=== PATIENT | female | born 1950 | race Caucasian/White ===

== ENCOUNTER → 2016-09-10 | Day surgery (SDC) | payer BC, MEDICARE ==
[~2016-09-10] MED LIST: Lactated Ringers 1,000 ML IV SCH; Propofol 200 MG/20 ML SDV IV ONE
[2016-09-10 10:20] VITALS: BP 137/68
--- NOTE | 2016-09-10 12:06 | OR ---
DATE OF OPERATION: 09/10/2016 PREOPERATIVE DIAGNOSIS: SCREENING COLONOSCOPY. POSTOPERATIVE DIAGNOSIS: SCREENING COLONOSCOPY. SURGEON: Darren Cooney MD PROCEDURE: FULL-LENGTH COLONOSCOPY. 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 COMPLICATIONS: None. SPECIMEN: None. FINDINGS: 1. Full-length colonoscopy. 2. Mild sigmoid diverticulosis. RECOMMENDATIONS: Routine colonoscopy every 10 years. INDICATIONS: The patient was in for a routine physical. Cierra Flores sent her for a screening colonoscopy. DESCRIPTION OF PROCEDURE: The patient was prepped and draped, placed in the left lateral decubitus position. A lubricated Olympus colonoscope was inserted and easily advanced to the cecum. The patient is a bit tortuous, but scope passed easily and safely. We directly visualized the ileocecal valve and appendiceal orifice. Bowel prep was excellent. Upon withdrawal of the scope throughout the entire length of the colon, I found no signs of any polyps, mass, ulceration, or bleeding sites. No vascular abnormalities or signs of colitis. Mild scattered diverticula in the sigmoid colon without any inflammatory change. The rectal vault was unremarkable. Retroflexion of scope in the rectum showed no anal lesions. Air was then suctioned. Scope was removed without complication. CAMMIE/EVA /[id number]
== END ==
LOC: CC.SDS 08:28
PROVIDERS: ATTEND Family Medicine
DX: Z12.11 Encounter for screening for malignant neoplasm of colon (principal); K57.30 Diverticulosis of large intestine without perforation or abscess without bleeding; E78.5 Hyperlipidemia, unspecified; Z91.030 Bee allergy status; Z79.899 Other long term (current) drug therapy; Z90.49 Acquired absence of other specified parts of digestive tract; Z98.890 Other specified postprocedural states; Z87.891 Personal history of nicotine dependence; Z72.0 Tobacco use
CPT/HCPCS: G0121; J2704; J7120

== ENCOUNTER 2019-04-07 10:18 | Inpatient (IN) | payer BC, MEDICARE ==
[2019-04-07] MEDS ORDERED: Morphine 2 MG/ML Syringe IVPUSH ONE (10:49)
[2019-04-07] MEDS ORDERED: Ondansetron 4 MG/2 ML SDV IVPUSH ONE (10:52)
[2019-04-07] MEDS ORDERED: Sodium Chloride 0.9% 1,000 ML IV SCH (11:00)
[2019-04-07] MEDS ORDERED: Iopamidol 612 MG/ML 100 ML Bottle IVPUSH ONE (12:04)
--- NOTE | 2019-04-07 13:41 | EDM.PDOC ---
ED HPI GENERAL MEDICAL PROBLEM - General Chief Complaint: Gastrointestinal Problem Stated Complaint: abd pain, n/v Time Seen by Provider: 04/07/19 10:45 Source of Information: Reports: Patient, EMS, Family History Limitations: Reports: No Limitations - History of Present Illness INITIAL COMMENTS - FREE TEXT/NARRATIVE: Patient to the emergency department complaint of general to mid abdominal pain for the past few days. The patient has had some nausea with occasional vomiting. She did advise that her last bowel movement was brown-colored this morning. She denies any fever chills she denies any unusual neck, back pain or stiffness she denies any UTI type symptoms Onset: Gradual Duration: Day(s): (couple of days) Location: Reports: Abdomen Quality: Reports: Ache Severity: Moderate Improves with: Reports: None Worsens with: Reports: None Associated Symptoms: Reports: Nausea/Vomiting. 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) Abdominal Pain Score (Numeric/FACES): 10 - Related Data Allergies Allergy/AdvReac Type Severity Reaction Status Date / Time bee venom protein (honey bee) Allergy Other Verified 04/07/19 10:19 Home Meds: Home Meds Cholecalciferol (Vitamin D3) [Vitamin D3] 2,000 units PO DAILY 03/13/14 [History ] Cimetidine [Tagamet] 200 mg PO BID PRN 03/13/14 [History] Fish Oil/[place]-3 Fatty Acids [Fish Oil] 1 each PO DAILY 03/13/14 [History] Ibuprofen [Advil] 200 mg PO ASDIRECTED PRN 03/13/14 [History] Red Yeast Rice 600 mg PO BID 03/13/14 [History] Ubidecarenone [Co Q-10] 100 mg PO DAILY 03/13/14 [History] Calcium Carbonate [Calcium] 600 mg PO DAILY 09/09/16 [History] EPINEPHrine [Epipen] 0.3 mg IM DAILY 09/09/16 [History] Vitamin B Complex 1 each PO DAILY 09/09/16 [History] Denosumab [Prolia] 60 mg PO Q6M 07/14/18 [History] Loratadine [Claritin] 10 mg PO DAILY 07/14/18 [History] Lifitegrast [Xiidra] 1 drop EYEBOTH BID 03/05/19 [History] Past Medical History Gastrointestinal History: Reports: Diverticulosis Social & Family History - Family History Family Medical History: Noncontributory - Tobacco Use Smoking Status *Q: Never Smoker - Recreational Drug Use Recreational Drug Use: No ED ROS GENERAL - Review of Systems Review Of Systems: See Below Constitutional: Reports: No Symptoms. Denies: Fever, Chills HEENT: Reports: No Symptoms Respiratory: Reports: No Symptoms. Denies: Shortness of Breath Cardiovascular: Reports: No Symptoms. Denies: Chest Pain Endocrine: Reports: No Symptoms GI/Abdominal: Reports: Abdominal Pain, Nausea, Vomiting. Denies: Black Stool, Bloody Stool, Constipation, Diarrhea, Distension, Melena : Reports: No Symptoms Musculoskeletal: Reports: No Symptoms. Denies: Neck Pain, Back Pain Skin: Reports: No Symptoms. Denies: Bruising, Rash Neurological: Reports: No Symptoms Psychiatric: Reports: No Symptoms ED EXAM, GI/ABD - Physical Exam Exam: See Below Exam Limited By: No Limitations General Appearance: Alert, WD/WN, Mild Distress, Thin Ears: Normal External Exam Nose: Normal Inspection Throat/Mouth: Normal Inspection, Normal Voice, No Airway Compromise Head: Atraumatic, Normocephalic Neck: Normal Inspection, Supple, Non-Tender, Full Range of Motion Respiratory/Chest: No Respiratory Distress, Lungs Clear, Normal Breath Sounds, Chest Non-Tender Cardiovascular: Normal Peripheral Pulses, Regular Rate, Rhythm, No Murmur GI/Abdominal Exam: Soft, Tender (Generalized). No: Non-Tender, Distended, Rigid , Rebound Back Exam: Normal Inspection, Full Range of Motion Extremities: Normal Inspection, Normal Range of Motion, Non-Tender, Normal Capillary Refill Neurological: Alert, Oriented, Normal Cognition, Normal Gait, No Motor/Sensory Deficits Psychiatric: Normal Affect, Normal Mood Skin Exam: Warm, Dry, Intact, Normal Color Course - Vital Signs Text/Narrative:: The patient has been evaluated in the emergency department, CBC and general chemistries are essentially normal CRP and lactic acid are normal. Flat and upright the abdomen shows some air-fluid levels with a large small bowel ileus. The patient has normal saline IV fluids going she has been medicated for pain and nausea. Currently waiting on CT to complete a CT of the abdomen pelvis. 1415 I was called by the radiology group at [place] and advised that the patient does not have a small bowel obstruction at this point. There are air- fluid levels and it appears as if the symptoms or films are consistent with enteritis. See the radiologist dictation for complete details. Patient advises that she is still having some abdominal cramping and nausea. The patient has been given IV fluids as well as IV medications to treat her symptoms with mild results at best. The patient will be observed in observation overnight for IV fluids for hydration and prevent dehydration and control of the nausea vomiting as well as abdominal cramping. Last Recorded V/S: Last Vital Signs Temp 36.1 C 04/07/19 10:20 Pulse 74 04/07/19 10:20 Resp 18 04/07/19 10:20 BP 154/77 H 04/07/19 10:36 Pulse Ox 100 04/07/19 10:20 - Orders/Labs/Meds Orders: Active Orders 24 hr Category Date Time Status Abdomen 2V AP Flat Upright [CR] Stat Exams 04/07/19 10:48 Taken Abdomen Pelvis w Cont [CT] Stat Exams 04/07/19 11:57 Taken Sodium Chloride 0.9% [Normal Saline] 1,000 ml Med 04/07/19 11:00 Active IV ASDIRECTED Medication Orders Sodium Chloride (Normal Saline) 1,000 mls @ 150 mls/hr IV ASDIRECTED JEFF Last Admin: 04/07/19 11:48 Dose: 150 mls/hr Labs: Laboratory Tests 04/07/19 04/07/19 04/07/19 Range/Units 10:55 10:55 10:55 WBC 8.4 (5.0-10.0) 10^3/uL RBC 4.02 (4.00-5.50) 10^6/uL Hgb 12.4 (12.0-16.0) g/dL Hct 36.1 L (37.0-47.0) % MCV 89.8 (82.0-94.0) fL MCH 30.8 (27.0-32.0) pg MCHC 34.3 (33.0-38.0) g/dL RDW Coeff of [place] 12.8 (11.0-15.0) % Plt Count 311 (150-400) 10^3/uL Neut % (Auto) 80.7 (35-85) % Lymph % (Auto) 13.8 (10-55) % [place] % (Auto) 4.9 (0-16) % Eos % (Auto) 0.4 (0-5) % Baso % (Auto) 0.2 (0-3) % Neut # (Auto) 6.75 (1.80-7.00) 10^3/uL Lymph # (Auto) 1.15 (1.00-4.80) 10^3/uL [place] # (Auto) 0.41 (0.00-0.80) 10^3/uL Eos # (Auto) 0.03 (0.00-0.45) 10^3/uL Baso # (Auto) 0.02 10^3/uL Sodium 137 (136-145) mEq/L Potassium 3.5 (3.5-5.0) mEq/L Chloride 101 (98-106) mEq/L Carbon Dioxide 25 (21-32) mmol/L BUN 21 H (7-18) mg/dL Creatinine 1.0 (0.6-1.0) mg/dL Est Cr Clr Drug Dosing 40.87 mL/min Estimated GFR (MDRD) 55 L (>=60) mL/min Glucose 107 H (75-99) mg/dL Lactic Acid 1.2 (0.4-2.0) mmol/L Calcium 9.9 (8.4-10.1) mg/dL Total Bilirubin 0.4 (0.0-1.0) mg/dL AST 23 (15-37) U/L ALT 25 (12-78) U/L Alkaline Phosphatase 76 (46-116) U/L C-Reactive Protein 0.5 (0.2-0.8) mg/dL Total Protein 7.4 (6.4-8.2) g/dL Albumin 3.8 (3.4-5.0) g/dL Urine Color (YELLOW) Urine Appearance (CLEAR) Urine pH (4.5-8.0) Ur Specific [place] (1.003-1.020) Urine Protein (NEGATIVE) mg/dL Urine Glucose (UA) (NEGATIVE) mg/dL Urine Ketones (NEGATIVE) mg/dL Urine Occult Blood (NEGATIVE) Urine Nitrite (NEGATIVE) Urine Bilirubin (NEGATIVE) Urine Urobilinogen (0.2-1.0) EU/dL Ur Leukocyte Esterase (NEGATIVE) 04/07/19 Range/Units 14:00 WBC (5.0-10.0) 10^3/uL RBC (4.00-5.50) 10^6/uL Hgb (12.0-16.0) g/dL Hct (37.0-47.0) % MCV (82.0-94.0) fL MCH (27.0-32.0) pg MCHC (33.0-38.0) g/dL RDW Coeff of [place] (11.0-15.0) % Plt Count (150-400) 10^3/uL Neut % (Auto) (35-85) % Lymph % (Auto) (10-55) % [place] % (Auto) (0-16) % Eos % (Auto) (0-5) % Baso % (Auto) (0-3) % Neut # (Auto) (1.80-7.00) 10^3/uL Lymph # (Auto) (1.00-4.80) 10^3/uL [place] # (Auto) (0.00-0.80) 10^3/uL Eos # (Auto) (0.00-0.45) 10^3/uL Baso # (Auto) 10^3/uL Sodium (136-145) mEq/L Potassium (3.5-5.0) mEq/L Chloride (98-106) mEq/L Carbon Dioxide (21-32) mmol/L BUN (7-18) mg/dL Creatinine (0.6-1.0) mg/dL Est Cr Clr Drug Dosing mL/min Estimated GFR (MDRD) (>=60) mL/min Glucose (75-99) mg/dL Lactic Acid (0.4-2.0) mmol/L Calcium (8.4-10.1) mg/dL Total Bilirubin (0.0-1.0) mg/dL AST (15-37) U/L ALT (12-78) U/L Alkaline Phosphatase (46-116) U/L C-Reactive Protein (0.2-0.8) mg/dL Total Protein (6.4-8.2) g/dL Albumin (3.4-5.0) g/dL Urine Color Yellow (YELLOW) Urine Appearance Cloudy (CLEAR) Urine pH 7.0 (4.5-8.0) Ur Specific [place] 1.015 (1.003-1.020) Urine Protein Negative (NEGATIVE) mg/dL Urine Glucose (UA) Negative (NEGATIVE) mg/dL Urine Ketones Negative (NEGATIVE) mg/dL Urine Occult Blood Negative (NEGATIVE) Urine Nitrite Negative (NEGATIVE) Urine Bilirubin Negative (NEGATIVE) Urine Urobilinogen 0.2 (0.2-1.0) EU/dL Ur Leukocyte Esterase Negative (NEGATIVE) Meds: Medications Generic Name Dose Route Start Last Admin Trade Name Freq PRN Reason Stop Dose Admin Sodium Chloride 1,000 mls @ 150 mls/hr 04/07/19 11:00 04/07/19 11:48 Normal Saline IV 150 mls/hr ASDIRECTED JEFF Administration Discontinued Medications Generic Name Dose Route Start Last Admin Trade Name Freq PRN Reason Stop Dose Admin Iopamidol 100 ml 04/07/19 12:04 04/07/19 12:25 Isovue-300 (61%) IVPUSH 04/07/19 12:05 100 ml ONETIME ONE Administration Morphine Sulfate 4 mg 04/07/19 10:49 04/07/19 11:47 Morphine IVPUSH 04/07/19 10:50 4 mg ONETIME ONE Administration Ondansetron HCl 4 mg 04/07/19 10:52 04/07/19 11:48 Zofran IVPUSH 04/07/19 10:53 4 mg ONETIME ONE Administration Departure - Departure Time of Disposition: 14:20 Disposition: Refer to Observation Condition: Good Clinical Impression: Gastroenteritis, Dehydration, Abdominal pain, Ileus - Discharge Information *PRESCRIPTION DRUG MONITORING PROGRAM REVIEWED*: Not Applicable *COPY OF PRESCRIPTION DRUG MONITORING REPORT IN PATIENT CHEN: Not Applicable Referrals: Zeinab Flores PA [Primary Care Provider] - Forms: ED Department Discharge Sepsis Event Note - Evaluation Sepsis Screening Result: No Definite Risk - Focused Exam Vital Signs: Vital Signs Temp Pulse Resp BP Pulse Ox 04/07/19 10:36 154/77 H 04/07/19 10:20 36.1 C 74 18 163/78 H 100 Date Exam was Performed: 04/07/19 Time Exam was Performed: 14:16 - Problem List & Annotations (1) Abdominal pain SNOMED Code(s): 32075603 Code(s): R10.9 - UNSPECIFIED ABDOMINAL PAIN Status: Acute Priority: Medium Current Visit: Yes Qualifiers: Abdominal location: generalized Qualified Code(s): R10.84 - Generalized abdominal pain (2) Dehydration SNOMED Code(s): 93217525 Code(s): E86.0 - DEHYDRATION Status: Acute Priority: Medium Current Visit: Yes (3) Gastroenteritis SNOMED Code(s): 68422182 Code(s): K52.9 - NONINFECTIVE GASTROENTERITIS AND COLITIS, UNSPECIFIED Status: Acute Priority: Medium Current Visit: Yes (4) Ileus SNOMED Code(s): 742008388 Code(s): K56.7 - ILEUS, UNSPECIFIED Status: Acute Priority: Medium Current Visit: Yes - Problem List Review Problem List Initiated/Reviewed/Updated: Yes - My Orders Last 24 Hours: My Active Orders 04/07/19 10:48 Abdomen 2V AP Flat Upright [CR] Stat 04/07/19 11:00 Sodium Chloride 0.9% [Normal Saline] 1,000 ml IV ASDIRECTED 04/07/19 11:57 Abdomen Pelvis w Cont [CT] Stat - Assessment/Plan Admission H&P: Please use this note as an admission H&P Last 24 Hours: My Active Orders 04/07/19 10:48 Abdomen 2V AP Flat Upright [CR] Stat 04/07/19 11:00 Sodium Chloride 0.9% [Normal Saline] 1,000 ml IV ASDIRECTED 04/07/19 11:57 Abdomen Pelvis w Cont [CT] Stat Plan: The patient will be evaluated in observation overnight. Again she will be given IV fluids to keep her hydrated as well as she will be given antiemetics to control her nausea and vomiting. The patient's labs will be repeated in the morning and I suspect discharged home tomorrow as well. However, further disposition and treatment will be based on further assessments and labs that are collected tomorrow.
[2019-04-07] MEDS ORDERED: Sodium Chloride 0.9% 10 ML Syringe FLUSH PRN (14:24)
[2019-04-07] MEDS: Non-Formulary Medication 1 Each (Denosumab [Prolia] 60 MG) PO SCH ×4 (18:28→18:31)
[2019-04-07] MEDS ORDERED: Ibuprofen 200 MG Tab PO PRN (19:32)
[2019-04-07] MEDS: Dicyclomine 10 MG Cap PO PRN (19:38)
[2019-04-07] MEDS ORDERED: Non-Formulary Medication 1 Each (Lifitegrast [Xiidra] 1 DROP) EYEBOTH SCH (20:00)
[2019-04-07] MEDS: Sodium Chloride 0.9% 1,000 ML IV SCH (20:04)
[2019-04-07] MEDS: Ondansetron 4 MG/2 ML SDV IV PRN (22:03)
[2019-04-08] MEDS ORDERED: Ondansetron 4 MG/2 ML SDV IVPUSH ONE (00:57)
[2019-04-08] MEDS: Dicyclomine 10 MG Cap PO PRN ×4 (01:16→21:23)
[2019-04-08 07:18] LABS: CHLORIDE,CL 104 mEq/L (98-106); SODIUM,NA 136 mEq/L (136-145)
[2019-04-08] MEDS: Loratadine 10 MG Tab PO SCH (08:26)
[2019-04-08] MEDS: Sodium Chloride 0.9% 1,000 ML IV SCH ×2 (10:57→23:12)
--- NOTE | 2019-04-08 10:58 | PCM.PN ---
- General Info Date of Service: 04/08/19 Functional Status: Reports: Ambulating, Other (still have abd cramping) - Review of Systems General: Reports: No Symptoms. Denies: Fever, Weakness HEENT: Reports: No Symptoms Pulmonary: Reports: No Symptoms. Denies: Shortness of Breath Cardiovascular: Reports: No Symptoms. Denies: Chest Pain Gastrointestinal: Reports: Abdominal Pain, Nausea, Vomiting. Denies: Melena Musculoskeletal: Reports: No Symptoms. Denies: Neck Pain, Back Pain Skin: Reports: No Symptoms. Denies: Bruising Neurological: Reports: No Symptoms Psychiatric: Reports: No Symptoms - Patient Data Vitals - Most Recent: Last Vital Signs Temp 36.3 C 04/08/19 08:00 Pulse 72 04/08/19 08:00 Resp 18 04/08/19 08:00 BP 126/56 L 04/08/19 08:00 Pulse Ox 98 04/08/19 08:00 Weight - Most Recent: 49.895 kg I&O - Last 24 Hours: Intake & Output 04/07/19 04/08/19 04/08/19 22:59 06:59 14:59 Intake Total 500 540 Output Total 1550 1100 Balance -1050 -560 Lab Results Last 24 Hours: Laboratory Results - last 24 hr 04/07/19 04/07/19 04/07/19 Range/Units 10:55 10:55 10:55 WBC 8.4 (5.0-10.0) 10^3/uL RBC 4.02 (4.00-5.50) 10^6/uL Hgb 12.4 (12.0-16.0) g/dL Hct 36.1 L (37.0-47.0) % MCV 89.8 (82.0-94.0) fL MCH 30.8 (27.0-32.0) pg MCHC 34.3 (33.0-38.0) g/dL RDW Coeff of [place] 12.8 (11.0-15.0) % Plt Count 311 (150-400) 10^3/uL Neut % (Auto) 80.7 (35-85) % Lymph % (Auto) 13.8 (10-55) % [place] % (Auto) 4.9 (0-16) % Eos % (Auto) 0.4 (0-5) % Baso % (Auto) 0.2 (0-3) % Neut # (Auto) 6.75 (1.80-7.00) 10^3/uL Lymph # (Auto) 1.15 (1.00-4.80) 10^3/uL [place] # (Auto) 0.41 (0.00-0.80) 10^3/uL Eos # (Auto) 0.03 (0.00-0.45) 10^3/uL Baso # (Auto) 0.02 10^3/uL Sodium 137 (136-145) mEq/L Potassium 3.5 (3.5-5.0) mEq/L Chloride 101 (98-106) mEq/L Carbon Dioxide 25 (21-32) mmol/L BUN 21 H (7-18) mg/dL Creatinine 1.0 (0.6-1.0) mg/dL Est Cr Clr Drug Dosing 40.87 mL/min Estimated GFR (MDRD) 55 L (>=60) mL/min Glucose 107 H (75-99) mg/dL Lactic Acid 1.2 (0.4-2.0) mmol/L Calcium 9.9 (8.4-10.1) mg/dL Total Bilirubin 0.4 (0.0-1.0) mg/dL AST 23 (15-37) U/L ALT 25 (12-78) U/L Alkaline Phosphatase 76 (46-116) U/L C-Reactive Protein 0.5 (0.2-0.8) mg/dL Total Protein 7.4 (6.4-8.2) g/dL Albumin 3.8 (3.4-5.0) g/dL Urine Color (YELLOW) Urine Appearance (CLEAR) Urine pH (4.5-8.0) Ur Specific [place] (1.003-1.020) Urine Protein (NEGATIVE) mg/dL Urine Glucose (UA) (NEGATIVE) mg/dL Urine Ketones (NEGATIVE) mg/dL Urine Occult Blood (NEGATIVE) Urine Nitrite (NEGATIVE) Urine Bilirubin (NEGATIVE) Urine Urobilinogen (0.2-1.0) EU/dL Ur Leukocyte Esterase (NEGATIVE) 04/07/19 04/08/19 04/08/19 Range/Units 14:00 06:50 06:50 WBC 5.8 (5.0-10.0) 10^3/uL RBC 3.54 L (4.00-5.50) 10^6/uL Hgb 10.9 L (12.0-16.0) g/dL Hct 32.3 L (37.0-47.0) % MCV 91.2 (82.0-94.0) fL MCH 30.8 (27.0-32.0) pg MCHC 33.7 (33.0-38.0) g/dL RDW Coeff of [place] 13.1 (11.0-15.0) % Plt Count 293 (150-400) 10^3/uL Neut % (Auto) 59.9 (35-85) % Lymph % (Auto) 31.1 (10-55) % [place] % (Auto) 7.8 (0-16) % Eos % (Auto) 1.0 (0-5) % Baso % (Auto) 0.2 (0-3) % Neut # (Auto) 3.44 (1.80-7.00) 10^3/uL Lymph # (Auto) 1.79 (1.00-4.80) 10^3/uL [place] # (Auto) 0.45 (0.00-0.80) 10^3/uL Eos # (Auto) 0.06 (0.00-0.45) 10^3/uL Baso # (Auto) 0.01 10^3/uL Sodium 136 (136-145) mEq/L Potassium 3.6 (3.5-5.0) mEq/L Chloride 104 (98-106) mEq/L Carbon Dioxide 24 (21-32) mmol/L BUN 11 (7-18) mg/dL Creatinine 0.8 (0.6-1.0) mg/dL Est Cr Clr Drug Dosing 53.01 mL/min Estimated GFR (MDRD) > 60 (>=60) mL/min Glucose 108 H (75-99) mg/dL Lactic Acid (0.4-2.0) mmol/L Calcium 8.0 L (8.4-10.1) mg/dL Total Bilirubin (0.0-1.0) mg/dL AST (15-37) U/L ALT (12-78) U/L Alkaline Phosphatase (46-116) U/L C-Reactive Protein (0.2-0.8) mg/dL Total Protein (6.4-8.2) g/dL Albumin (3.4-5.0) g/dL Urine Color Yellow (YELLOW) Urine Appearance Cloudy (CLEAR) Urine pH 7.0 (4.5-8.0) Ur Specific [place] 1.015 (1.003-1.020) Urine Protein Negative (NEGATIVE) mg/dL Urine Glucose (UA) Negative (NEGATIVE) mg/dL Urine Ketones Negative (NEGATIVE) mg/dL Urine Occult Blood Negative (NEGATIVE) Urine Nitrite Negative (NEGATIVE) Urine Bilirubin Negative (NEGATIVE) Urine Urobilinogen 0.2 (0.2-1.0) EU/dL Ur Leukocyte Esterase Negative (NEGATIVE) Med Orders - Current: Current Medications Acetaminophen (Tylenol) 650 mg PO Q6H PRN PRN Reason: Fever Dicyclomine HCl (Bentyl) 10 mg PO QIDACANDBED PRN PRN Reason: Abdominal Pain Last Admin: 04/08/19 01:16 Dose: 10 mg Sodium Chloride (Normal Saline) 1,000 mls @ 80 mls/hr IV ASDIRECTED [facility] Last Admin: 04/07/19 20:04 Dose: 80 mls/hr Ibuprofen (Motrin) 600 mg PO Q8H PRN PRN Reason: Fever Last Admin: 04/07/19 20:03 Dose: 600 mg Loratadine (Claritin) 10 mg PO DAILY [facility] Last Admin: 04/08/19 08:26 Dose: Not Given Non-Formulary Medication (Lifitegrast [Xiidra]) 1 drop EYEBOTH BID [facility] Ondansetron HCl (Zofran) 4 mg IV Q4H PRN PRN Reason: Nausea/Vomiting Last Admin: 04/07/19 22:03 Dose: 4 mg Sodium Chloride (Saline Flush) 10 ml FLUSH ASDIRECTED PRN PRN Reason: Keep Vein Open Discontinued Medications Sodium Chloride (Normal Saline) 1,000 mls @ 150 mls/hr IV ASDIRECTED [facility] Last Admin: 04/07/19 11:48 Dose: 150 mls/hr Iopamidol (Isovue-300 (61%)) 100 ml IVPUSH ONETIME ONE Stop: 04/07/19 12:05 Last Admin: 04/07/19 12:25 Dose: 100 ml Morphine Sulfate (Morphine) 4 mg IVPUSH ONETIME ONE Stop: 04/07/19 10:50 Last Admin: 04/07/19 11:47 Dose: 4 mg Non-Formulary Medication (Denosumab [Prolia]) 60 mg PO Q6M JEFF Last Admin: 04/07/19 18:31 Dose: Not Given Ondansetron HCl (Zofran) 4 mg IVPUSH ONETIME ONE Stop: 04/07/19 10:53 Last Admin: 04/07/19 11:48 Dose: 4 mg Ondansetron HCl (Zofran) 4 mg IVPUSH ONETIME ONE Stop: 04/08/19 00:58 Last Admin: 04/08/19 01:10 Dose: 4 mg - Exam General: Alert, Oriented, Cooperative Neck: Supple, Trachea Midline Lungs: Clear to Auscultation, Normal Respiratory Effort Cardiovascular: Regular Rate, Regular Rhythm, No Murmurs GI/Abdominal Exam: Normal Bowel Sounds, Soft, No Distention, No Abnormal Bruit. No: Non-Tender (mid lower abd tenderness with palpation) Back Exam: Normal Inspection, Full Range of Motion Extremities: Normal Inspection, Normal Range of Motion, Non-Tender, Normal Capillary Refill Peripheral Pulses: 2+: Radial (L) Skin: Warm, Dry, Intact Neurological: No New Focal Deficit Psy/Mental Status: Alert, Normal Affect, Normal Mood Sepsis Event Note - Evaluation Sepsis Screening Result: No Definite Risk - Focused Exam Vital Signs: Vital Signs Temp Pulse Resp BP Pulse Ox 04/08/19 08:00 36.3 C 72 18 126/56 L 98 04/08/19 05:00 37.6 C 89 16 131/51 L 98 04/08/19 00:00 37.3 C 77 16 124/54 L 96 Date Exam was Performed: 04/08/19 Time Exam was Performed: 10:53 - Problem List & Annotations (1) Abdominal pain SNOMED Code(s): 65727796 Code(s): R10.9 - UNSPECIFIED ABDOMINAL PAIN Status: Acute Priority: Medium Current Visit: Yes Qualifiers: Abdominal location: generalized Qualified Code(s): R10.84 - Generalized abdominal pain (2) Dehydration SNOMED Code(s): 92259154 Code(s): E86.0 - DEHYDRATION Status: Acute Priority: Medium Current Visit: Yes (3) Gastroenteritis SNOMED Code(s): 99850556 Code(s): K52.9 - NONINFECTIVE GASTROENTERITIS AND COLITIS, UNSPECIFIED Status: Acute Priority: Medium Current Visit: Yes (4) Ileus SNOMED Code(s): 263142342 Code(s): K56.7 - ILEUS, UNSPECIFIED Status: Acute Priority: Medium Current Visit: Yes - Problem List Review Problem List Initiated/Reviewed/Updated: Yes - My Orders Last 24 Hours: My Active Orders 04/07/19 10:48 Abdomen 2V AP Flat Upright [CR] Stat 04/07/19 11:57 Abdomen Pelvis w Cont [CT] Stat 04/07/19 14:24 Patient Status [ADT] Routine Intake and Output [RC] 0600,1800 Oxygen Therapy [RC] .PRN Up With Assistance [RC] .PRN Vital Signs [RC] 0000,0400,0800,1200,1600,2000 Ondansetron [Zofran] 4 mg IV Q4H PRN Sodium Chloride 0.9% [Saline Flush] 10 ml FLUSH ASDIRECTED PRN Peripheral IV Insertion Adult [OM.PC] Routine Resuscitation Status Routine 04/07/19 14:27 Dicyclomine [Bentyl] 10 mg PO QIDACANDBED PRN 04/07/19 14:30 Sodium Chloride 0.9% [Normal Saline] 1,000 ml IV ASDIRECTED 04/07/19 19:31 Acetaminophen [Tylenol] 650 mg PO Q6H PRN 04/07/19 19:32 Ibuprofen [Motrin] 600 mg PO Q8H PRN 04/07/19 20:00 Lifitegrast [Xiidra] 1 drop EYEBOTH BID 04/07/19 Lunch Clear Liquid Diet [DIET] 04/08/19 08:00 Loratadine [Claritin] 10 mg PO DAILY - Plan Plan:: pt vomited 500ml during the night and has had small amount at 1000am today, still has some abd cramping, better than it was, no fever, is not tolerating clear liquids well. will continue current treatment plan, will add on a lipase. will keep today and reassess in am for possible DC. Changes to tx plan will be based on data collected and assessments.
[2019-04-08] MEDS: Acetaminophen 325 MG Tab PO PRN (16:24)
[2019-04-08] MEDS: Ondansetron 4 MG/2 ML SDV IV PRN (19:24)
[2019-04-09] MEDS: Ondansetron 4 MG/2 ML SDV IV PRN (03:38)
[2019-04-09] MEDS: Dicyclomine 10 MG Cap PO PRN ×2 (03:39→16:42)
[2019-04-09] MEDS: Acetaminophen 325 MG Tab PO PRN ×2 (07:37→16:42)
[2019-04-09] MEDS: Loratadine 10 MG Tab PO SCH (07:37)
[2019-04-09] MEDS: cefTRIAXone 1 GM Vial IVPUSH SCH (09:19)
--- NOTE | 2019-04-09 09:23 | PCM.PN ---
- General Info Date of Service: 04/09/19 Admission Dx/Problem (Free Text): Enteritis Functional Status: Reports: Pain Controlled, Ambulating. Denies: Tolerating Diet - Review of Systems General: Reports: Weakness, Fatigue, Malaise HEENT: Reports: Sinus Congestion, Sore Throat Pulmonary: Denies: Shortness of Breath, Cough Cardiovascular: Denies: Chest Pain, Edema, Lightheadedness Gastrointestinal: Reports: Abdominal Pain, Diarrhea, Nausea Genitourinary: Reports: No Symptoms Musculoskeletal: Reports: No Symptoms Skin: Reports: No Symptoms Neurological: Reports: No Symptoms - Patient Data Vitals - Most Recent: Last Vital Signs Temp 99.6 F 04/09/19 03:51 Pulse 94 04/09/19 03:51 Resp 20 04/09/19 03:51 BP 141/68 H 04/09/19 03:51 Pulse Ox 97 04/09/19 03:51 Weight - Most Recent: 110 lb I&O - Last 24 Hours: Intake & Output 04/08/19 04/09/19 04/09/19 22:59 06:59 14:59 Intake Total 1000 1380 Output Total 1600 400 Balance -600 980 Lab Results Last 24 Hours: Laboratory Results - last 24 hr 04/08/19 Range/Units 06:50 Lipase 64 L (73-393) U/L Med Orders - Current: Current Medications Acetaminophen (Tylenol) 650 mg PO Q6H PRN PRN Reason: Fever Last Admin: 04/09/19 07:37 Dose: 650 mg Ceftriaxone Sodium (Rocephin) 1 gm IVPUSH Q24H [facility] Dicyclomine HCl (Bentyl) 10 mg PO QIDACANDBED PRN PRN Reason: Abdominal Pain Last Admin: 04/09/19 03:39 Dose: 10 mg Sodium Chloride (Normal Saline) 1,000 mls @ 80 mls/hr IV ASDIRECTED JEFF Last Admin: 04/08/19 23:12 Dose: 80 mls/hr Ibuprofen (Motrin) 600 mg PO Q8H PRN PRN Reason: Fever Last Admin: 04/07/19 20:03 Dose: 600 mg Loratadine (Claritin) 10 mg PO DAILY [facility] Last Admin: 04/09/19 07:37 Dose: 10 mg Non-Formulary Medication (Lifitegrast [Xiidra]) 1 drop EYEBOTH BID [facility] Ondansetron HCl (Zofran) 4 mg IV Q4H PRN PRN Reason: Nausea/Vomiting Last Admin: 04/09/19 03:38 Dose: 4 mg Sodium Chloride (Saline Flush) 10 ml FLUSH ASDIRECTED PRN PRN Reason: Keep Vein Open Discontinued Medications Sodium Chloride (Normal Saline) 1,000 mls @ 150 mls/hr IV ASDIRECTED [facility] Last Admin: 04/07/19 11:48 Dose: 150 mls/hr Iopamidol (Isovue-300 (61%)) 100 ml IVPUSH ONETIME ONE Stop: 04/07/19 12:05 Last Admin: 04/07/19 12:25 Dose: 100 ml Morphine Sulfate (Morphine) 4 mg IVPUSH ONETIME ONE Stop: 04/07/19 10:50 Last Admin: 04/07/19 11:47 Dose: 4 mg Non-Formulary Medication (Denosumab [Prolia]) 60 mg PO Q6M [facility] Last Admin: 04/07/19 18:31 Dose: Not Given Ondansetron HCl (Zofran) 4 mg IVPUSH ONETIME ONE Stop: 04/07/19 10:53 Last Admin: 04/07/19 11:48 Dose: 4 mg Ondansetron HCl (Zofran) 4 mg IVPUSH ONETIME ONE Stop: 04/08/19 00:58 Last Admin: 04/08/19 01:10 Dose: 4 mg - Exam General: Alert, Oriented HEENT: Mucous Membr. Moist/[place], Other (nasal turbinates red, excoriated. Thick mucous noted. Tender to palpation to bilateral maxillary sinuses.) Neck: Supple Lungs: Clear to Auscultation, Normal Respiratory Effort Cardiovascular: Regular Rate, Regular Rhythm GI/Abdominal Exam: Normal Bowel Sounds, Soft, Tender (lower quadrants) Extremities: Normal Inspection, No Pedal Edema Skin: Warm, Dry Neurological: No New Focal Deficit Sepsis Event Note - Evaluation Sepsis Screening Result: No Definite Risk - Focused Exam Vital Signs: Vital Signs Temp Pulse Resp BP Pulse Ox 04/09/19 03:51 99.6 F 94 20 141/68 H 97 04/09/19 00:00 99.6 F 77 20 152/58 H 96 Date Exam was Performed: 04/09/19 Time Exam was Performed: 09:18 - Problem List & Annotations (1) Gastroenteritis SNOMED Code(s): 91516826 Code(s): K52.9 - NONINFECTIVE GASTROENTERITIS AND COLITIS, UNSPECIFIED Status: Acute Priority: High Current Visit: Yes (2) Sinusitis SNOMED Code(s): 38210909 Code(s): J32.9 - CHRONIC SINUSITIS, UNSPECIFIED Status: Acute Priority: High Current Visit: Yes (3) Ileus SNOMED Code(s): 569380524 Code(s): K56.7 - ILEUS, UNSPECIFIED Status: Acute Priority: High Current Visit: Yes - Problem List Review Problem List Initiated/Reviewed/Updated: Yes - My Orders Last 24 Hours: My Active Orders 04/09/19 08:53 Patient Status [ADT] Routine 04/09/19 09:00 cefTRIAXone [Rocephin] 1 gm IVPUSH Q24H 04/09/19 Lunch Advance Diet Instructions [DIET] - Assessment Assessment:: Gastroenteritis Ileus Sinusitis - Plan Plan:: pt vomited 500ml during the night and has had small amount at 1000am today, still has some abd cramping, better than it was, no fever, is not tolerating clear liquids well. will continue current treatment plan, will add on a lipase. will keep today and reassess in am for possible DC. Changes to tx plan will be based on data collected and assessments. 04-09-2019 Patient continues to have abdominal discomfort. States "sore". Vomited through night until around 0130. Patient feels it is from the heartburn caused by all the clear sweet liquids. Questioning if could try to advance her diet this am to see if she tolerates better. Now has diarrhea, had 3 loose stools during night. Has low grade fever this am. Abdomen is soft, tender to lower quads. Complaining of sinus pain, bloody drainage. Nasal turbinates are excoriated, does have maxillary sinus tenderness. Will give Rocephin for sinusitis as has not yet tolerated solid foods. Advance diet as tolerated. Push fluids. Transfer to acute.
[2019-04-09] MEDS: Sodium Chloride 0.9% 1,000 ML IV SCH (12:35)
[2019-04-10] MEDS: Sodium Chloride 0.9% 1,000 ML IV SCH (00:31)
[2019-04-10] MEDS: Acetaminophen 325 MG Tab PO PRN (04:40)
[2019-04-10] MEDS: Loratadine 10 MG Tab PO SCH (07:52)
[2019-04-10 07:53] VITALS: BP 130/53; PULSE 68
[2019-04-10 08:01] LABS: CHLORIDE,CL 107 mEq/L (98-106); SODIUM,NA 139 mEq/L (136-145)
[2019-04-10] MEDS: cefTRIAXone 1 GM Vial IVPUSH SCH (09:22)
--- NOTE | 2019-04-10 10:42 | PCM.DCSUM1 ---
Discharge Summary - Hospital Course Free Text/Narrative:: Carmen is a 69 year old who presented to the ER with complaints of abdominal pain. Had nausea with occasional vomiting. No fevers. No diarrhea. Labs were essentially normal. Flat and upright of the abdomen showed ileus with questionable air fluid levels. CT scan was then done which was negative for obstruction but showed signs of enteritis. As she continued to have pain despite IV fluids and meds, was admitted for observation. Diagnosis: Stroke: No Modified Lambert Scale: No Symptoms at All Modified Jonathan Scale Score: 0 - Discharge Data Discharge Date: 04/10/19 Discharge Disposition: Home, Self-Care 01 Condition: Good - Referral to Home Health Primary Care Physician: MCKENNA Hayden - Discharge Diagnosis/Problem(s) (1) Gastroenteritis SNOMED Code(s): 88741218 ICD Code: K52.9 - NONINFECTIVE GASTROENTERITIS AND COLITIS, UNSPECIFIED Status: Acute Priority: High (2) Sinusitis SNOMED Code(s): 71085210 ICD Code: J32.9 - CHRONIC SINUSITIS, UNSPECIFIED Status: Acute Priority: High (3) Ileus SNOMED Code(s): 792824815 ICD Code: K56.7 - ILEUS, UNSPECIFIED Status: Acute Priority: High - Patient Summary/Data Complications: none Hospital Course: Patient continued to have nausea, vomiting and diarrhea through the first 2 days of her stay here. Had low grade fevers for 48 hours but now has resolved. Have been able to advance diet and she did better with soft foods as they caused less nausea and heartburn than clear liquids. She is ambulating well. No further abdominal pain. Labs have remained normal, last WBC 3.4. CRP 3.8. Potassium is low at 3.1, likely due to diarrhea. However, that has now resolved as well. Patient did complain of increased sinus pressure, had maxillary sinus tenderness with the fevers. Was covered with Rocephin 1 gm x2 days. Will discharge home. Soft diet. Follow up next week with labs/recheck. - Patient Instructions Diet: Usual Diet as Tolerated Activity: As Tolerated - Discharge Plan *PRESCRIPTION DRUG MONITORING PROGRAM REVIEWED*: Not Applicable *COPY OF PRESCRIPTION DRUG MONITORING REPORT IN PATIENT CHEN: Not Applicable Home Medications: Home Meds Cholecalciferol (Vitamin D3) [Vitamin D3] 2,000 units PO DAILY 03/13/14 [History ] Cimetidine [Tagamet] 200 mg PO BID PRN 03/13/14 [History] Fish Oil/[place]-3 Fatty Acids [Fish Oil 1,000 MG] 1 each PO DAILY 03/13/14 [ History] Ibuprofen [Advil] 200 mg PO ASDIRECTED PRN 03/13/14 [History] Red Yeast Rice 600 mg PO BID 03/13/14 [History] Ubidecarenone [Co Q-10] 100 mg PO DAILY 03/13/14 [History] Calcium Carbonate [Calcium] 600 mg PO DAILY 09/09/16 [History] EPINEPHrine [Epipen 2-Terrance] 0.3 mg IM DAILY 09/09/16 [History] Vitamin B Complex 1 each PO DAILY 09/09/16 [History] Denosumab [Prolia] 60 mg PO Q6M 07/14/18 [History] Loratadine [Claritin] 10 mg PO DAILY 07/14/18 [History] Lifitegrast [Xiidra] 1 drop EYEBOTH BID 03/05/19 [History] Patient Handouts: Viral Gastroenteritis, Adult, Ileus, Sinusitis, Adult, Dehydration, Adult Forms: ED Department Discharge Referrals: Zeinab Flores PA [Primary Care Provider] - (Follow up with Keeley next week in [place]) - Discharge Summary/Plan Comment DC Time >30 min.: No - General Info Date of Service: 04/10/19 Admission Dx/Problem (Free Text: Enteritis Functional Status: Reports: Pain Controlled, Tolerating Diet, Ambulating - Review of Systems General: Reports: Weakness, Fatigue, Malaise HEENT: Reports: Sinus Congestion, Rhinitis Pulmonary: Denies: Shortness of Breath, Cough Cardiovascular: Denies: Chest Pain, Edema, Lightheadedness Gastrointestinal: Reports: Abdominal Pain. Denies: Nausea, Vomiting Genitourinary: Reports: No Symptoms Musculoskeletal: Reports: No Symptoms Skin: Reports: No Symptoms Neurological: Reports: Weakness - Patient Data Vitals - Most Recent: Last Vital Signs Temp 97.6 F 04/10/19 07:52 Pulse 68 04/10/19 07:52 Resp 12 04/10/19 07:52 BP 130/53 L 04/10/19 07:52 Pulse Ox 97 04/10/19 07:52 Weight - Most Recent: 110 lb I&O - Last 24 hours: Intake & Output 04/09/19 04/10/19 04/10/19 22:59 06:59 14:59 Intake Total 100 1755 400 Output Total 1500 1200 Balance -1400 555 400 Lab Results - Last 24 hrs: Laboratory Results - last 24 hr 04/10/19 04/10/19 Range/Units 05:11 07:10 WBC 3.4 L (5.0-10.0) 10^3/uL RBC 3.44 L (4.00-5.50) 10^6/uL Hgb 10.6 L (12.0-16.0) g/dL Hct 32.2 L (37.0-47.0) % MCV 93.6 (82.0-94.0) fL MCH 30.8 (27.0-32.0) pg MCHC 32.9 L (33.0-38.0) g/dL RDW Coeff of [place] 13.4 (11.0-15.0) % Plt Count 259 (150-400) 10^3/uL Neut % (Auto) 42.5 (35-85) % Lymph % (Auto) 41.5 (10-55) % [place] % (Auto) 9.9 (0-16) % Eos % (Auto) 5.8 H (0-5) % Baso % (Auto) 0.3 (0-3) % Neut # (Auto) 1.45 L (1.80-7.00) 10^3/uL Lymph # (Auto) 1.42 (1.00-4.80) 10^3/uL [place] # (Auto) 0.34 (0.00-0.80) 10^3/uL Eos # (Auto) 0.20 (0.00-0.45) 10^3/uL Baso # (Auto) 0.01 10^3/uL Sodium 139 (136-145) mEq/L Potassium 3.1 L (3.5-5.0) mEq/L Chloride 107 H (98-106) mEq/L Carbon Dioxide 24 (21-32) mmol/L BUN 6 L (7-18) mg/dL Creatinine 0.6 (0.6-1.0) mg/dL Est Cr Clr Drug Dosing 70.68 mL/min Estimated GFR (MDRD) > 60 (>=60) mL/min Glucose 83 (75-99) mg/dL Calcium 7.7 L (8.4-10.1) mg/dL C-Reactive Protein 3.8 H (0.2-0.8) mg/dL Med Orders - Current: Current Medications Discontinued Medications Acetaminophen (Tylenol) 650 mg PO Q6H PRN PRN Reason: Fever Last Admin: 04/10/19 04:40 Dose: 650 mg Ceftriaxone Sodium (Rocephin) 1 gm IVPUSH Q24H [facility] Last Admin: 04/10/19 09:22 Dose: 1 gm Dicyclomine HCl (Bentyl) 10 mg PO QIDACANDBED PRN PRN Reason: Abdominal Pain Last Admin: 04/09/19 16:42 Dose: 10 mg Sodium Chloride (Normal Saline) 1,000 mls @ 150 mls/hr IV ASDIRECTED [facility] Last Admin: 04/07/19 11:48 Dose: 150 mls/hr Sodium Chloride (Normal Saline) 1,000 mls @ 80 mls/hr IV ASDIRECTED [facility] Last Admin: 04/10/19 00:31 Dose: 80 mls/hr Ibuprofen (Motrin) 600 mg PO Q8H PRN PRN Reason: Fever Last Admin: 04/07/19 20:03 Dose: 600 mg Iopamidol (Isovue-300 (61%)) 100 ml IVPUSH ONETIME ONE Stop: 04/07/19 12:05 Last Admin: 04/07/19 12:25 Dose: 100 ml Loratadine (Claritin) 10 mg PO DAILY [facility] Last Admin: 04/10/19 07:52 Dose: 10 mg Morphine Sulfate (Morphine) 4 mg IVPUSH ONETIME ONE Stop: 04/07/19 10:50 Last Admin: 04/07/19 11:47 Dose: 4 mg Non-Formulary Medication (Denosumab [Prolia]) 60 mg PO Q6M [facility] Last Admin: 04/07/19 18:31 Dose: Not Given Non-Formulary Medication (Lifitegrast [Xiidra]) 1 drop EYEBOTH BID [facility] Ondansetron HCl (Zofran) 4 mg IVPUSH ONETIME ONE Stop: 04/07/19 10:53 Last Admin: 04/07/19 11:48 Dose: 4 mg Ondansetron HCl (Zofran) 4 mg IV Q4H PRN PRN Reason: Nausea/Vomiting Last Admin: 04/09/19 03:38 Dose: 4 mg Ondansetron HCl (Zofran) 4 mg IVPUSH ONETIME ONE Stop: 04/08/19 00:58 Last Admin: 04/08/19 01:10 Dose: 4 mg Sodium Chloride (Saline Flush) 10 ml FLUSH ASDIRECTED PRN PRN Reason: Keep Vein Open - Exam General: Reports: Alert, Oriented HEENT: Reports: Mucous Membr. Moist/[place]: Reports: Supple Lungs: Reports: Clear to Auscultation, Normal Respiratory Effort Cardiovascular: Reports: Regular Rate, Regular Rhythm GI/Abdominal Exam: Normal Bowel Sounds, Soft, Non-Tender Extremities: Normal Inspection, No Pedal Edema Skin: Reports: Warm, Dry Neurological: Reports: No New Focal Deficit
== END 2019-04-10 09:53 | disposition home or self-care (01) | DRG 249 ==
LOC: CC.ED 10:18 → CC.MS 14:22 → INTOOBSV 14:55 → UNDOADMOB 14:55 → OBSVTOIN 14:55
PROVIDERS: ADMIT Nurse Practitioner; ATTEND Family Medicine
DX: K52.9 Noninfective gastroenteritis and colitis, unspecified (principal); E86.0 Dehydration; K56.7 Ileus, unspecified; J32.9 Chronic sinusitis, unspecified; Z91.030 Bee allergy status; Z79.899 Other long term (current) drug therapy
CPT/HCPCS: 36415; 74019; 74177; 80048; 80053; 81003; 83605; 83690; 85025; 86140; 96361; 96374; 96375; 96376; 99285-25; A9270-GY; G0378; J0696; J2270; J2405; J7030; Q9967

== ENCOUNTER 2019-07-21 11:02 | Emergency (ER) | payer BC, MEDICARE ==
[2019-07-21 11:19] VITALS: BP 131/66; PULSE 74
--- NOTE | 2019-07-21 11:31 | EDM.PDOC ---
ED HPI GENERAL MEDICAL PROBLEM - General Chief Complaint: General Stated Complaint: laceration to left forehead and pain to left hand Time Seen by Provider: 07/21/19 11:02 Source of Information: Reports: Patient History Limitations: Reports: No Limitations - History of Present Illness INITIAL COMMENTS - FREE TEXT/NARRATIVE: This patent is a 69 year old female that presents to the ER. Patient [place] that [place] and [place]pped over the lip. She reports that she hit the front right of her head, her right hand hurts, and her left shoulder. Patient denies loc, n, v, vision changes. She does report feeling mildly dazed and laid on the ground for a little bit. No blood thinners. No trauma code called. Onset: Today Onset Date: 07/21/19 Onset Time: 08:00 Location: Reports: Face, Upper Extremity, Left, Upper Extremity, Right Front/Back Body Image: 1 - laceration 2 - eccyhmosis 3 - pain, tenderness mild 4 - pain, tenderness. mild Quality: Reports: Ache Severity: Mild Improves with: Reports: None Worsens with: Reports: None Associated Symptoms: Reports: Headaches. Denies: Confusion, Chest Pain, Cough, cough w sputum, Diaphoresis, Fever/Chills, Loss of Appetite, Malaise, Nausea/ Vomiting, Rash, Seizure, Shortness of Breath, Syncope, Weakness right forehead/hand Pain Score (Numeric/FACES): 6 - Related Data Allergies Allergy/AdvReac Type Severity Reaction Status Date / Time bee venom protein (honey bee) Allergy Other Verified 07/21/19 11:19 Home Meds: Home Meds Cholecalciferol (Vitamin D3) [Vitamin D3] 2,000 units PO DAILY 03/13/14 [History ] Cimetidine [Tagamet] 200 mg PO BID PRN 03/13/14 [History] Fish Oil/[place]-3 Fatty Acids [Fish Oil 1,000 MG] 1 each PO DAILY 03/13/14 [ History] Ibuprofen [Advil] 200 mg PO ASDIRECTED PRN 03/13/14 [History] Red Yeast Rice 600 mg PO BID 03/13/14 [History] Ubidecarenone [Co Q-10] 100 mg PO DAILY 03/13/14 [History] Calcium Carbonate [Calcium] 600 mg PO DAILY 09/09/16 [History] EPINEPHrine [Epipen 2-Terrance] 0.3 mg IM DAILY PRN 09/09/16 [History] Vitamin B Complex 1 each PO DAILY 09/09/16 [History] Denosumab [Prolia] 60 mg PO Q6M 07/14/18 [History] Loratadine [Claritin] 10 mg PO DAILY 07/14/18 [History] Lifitegrast [Xiidra] 1 drop EYEBOTH BID 03/05/19 [History] Past Medical History Gastrointestinal History: Reports: Diverticulosis Social & Family History - Family History Family Medical History: Noncontributory - Tobacco Use Smoking Status *Q: Never Smoker ED ROS GENERAL - Review of Systems Review Of Systems: See Below Constitutional: Reports: No Symptoms HEENT: Reports: No Symptoms Respiratory: Reports: No Symptoms. Denies: Shortness of Breath Cardiovascular: Reports: No Symptoms. Denies: Chest Pain, Lightheadedness, Syncope Endocrine: Reports: No Symptoms GI/Abdominal: Reports: No Symptoms. Denies: Abdominal Pain, Nausea, Vomiting : Reports: No Symptoms Musculoskeletal: Reports: Shoulder Pain (left), Hand Pain (right) Skin: Reports: No Symptoms Neurological: Reports: Headache. Denies: Confusion, Dizziness, Seizure, Syncope , Trouble Speaking, Difficulty Walking, Weakness, Change in Speech, Gait Disturbance Psychiatric: Reports: No Symptoms Hematologic/Lymphatic: Reports: No Symptoms Immunologic: Reports: No Symptoms ED EXAM, GENERAL - Physical Exam Exam: See Below Exam Limited By: No Limitations General Appearance: Alert, WD/WN, No Apparent Distress Eye Exam: Bilateral Eye: EOMI, Normal Inspection, PERRL Ears: Normal External Exam, Normal Canal, Hearing Grossly Normal, Normal TMs Ear Exam: Bilateral Ear: Auricle Normal, Canal Normal, TM normal Nose: Normal Inspection, Normal Mucosa, No Blood Throat/Mouth: Normal Inspection, Normal Lips, Normal Teeth, Normal Gums, Normal Oropharynx, Normal Voice, No Airway Compromise Head: Facial Swelling (right upper forehead mild), Facial Tenderness (right frontal uppper forehead) Neck: Normal Inspection, Supple, Non-Tender, Full Range of Motion Respiratory/Chest: No Respiratory Distress, Lungs Clear, Normal Breath Sounds, No Accessory Muscle Use Cardiovascular: Normal Peripheral Pulses, Regular Rate, Rhythm, No Edema, No Gallop, No JVD, No Murmur, No Rub Peripheral Pulses: 2+: Radial (L), Radial (R), Posterior Tibial (L), Posterior Tibial (R) GI/Abdominal: Soft, Non-Tender Back Exam: Normal Inspection, Full Range of Motion. No: CVA Tenderness (L), CVA Tenderness (R), Decreased Range of Motion, Muscle Spasm, Paraspinal Tenderness, Vertebral Tenderness Extremities: Normal Range of Motion, No Pedal Edema, Normal Capillary Refill, Other (Right hand 5th distal metacarpal tenderness mild. Left shoulder anterior mild tenderness. ROM intact. Neurovascular intact, sensory/motor function intact. Pulses +2, cap refill < 2 sec. ) Neurological: Alert, Oriented, CN II-XII Intact, Normal Cognition, Normal Gait, No Motor/Sensory Deficits Psychiatric: Normal Affect, Normal Mood Skin Exam: Warm, Dry, Normal Color, No Rash, Ecchymosis (Right frontal upper forehead mild, with mild swelling. ), Wound/Incision (small 0.5cm laceration right frontal upper forehead. Tetanus UTD.) Lymphatic: No Adenopathy ED GENERAL MEDICAL PROCEDURES - Laceration/Wound Repair Right Upper Anterior Face Lac/wound length in cm: 0.5 Appearance: Superficial, Clean Distal NVT: Neuro & Vascular Intact, No Tendon Injury Skin Prep: Chlorhexidine (Hibiciens) Exploration/Debridement/Repair: Wound Explored, In a Bloodless Field, Explored to Base, Wound Margins Revised Closed with: Dermabond Tetanus Status Addressed: Yes Complications: No - Splinting Right Upper Extremity Splint Site: right hand Pre-procedure NV status: Normal Post-procedure NV status: Normal Splint Material: Fiberglass Splint Design: Boxer Splint Applied & Form Fitted By: Provider Provider Post-Splint Application NV Check: NV Status Normal, Good Position Complications: No Course - Vital Signs Last Recorded V/S: Last Vital Signs Temp 96 F L 07/21/19 11:17 Pulse 74 07/21/19 11:17 Resp 18 07/21/19 11:17 BP 131/66 07/21/19 11:17 Pulse Ox 100 07/21/19 11:17 - Orders/Labs/Meds Orders: Active Orders 24 hr Category Date Time Status Hand Comp Min 3V Rt [CR] Stat Exams 07/21/19 11:52 Taken Head wo Cont [CT] Stat Exams 07/21/19 11:12 Taken Shoulder Comp Lt [CR] Stat Exams 07/21/19 11:12 Taken - Radiology Interpretation Free Text/Narrative:: Xray left shoulder: no fracture or dislocation xray right hand: right 5th proximal metacarpal fracture. Not displaced. Head ct: no acute abnormality - Re-Assessments/Exams Free Text/Narrative Re-Assessment/Exam: 07/21/19 12:28 I wanted to put a hand splint on patient, however we do not have right available in stock. I with orthoglass instead. Departure - Departure Time of Disposition: 12:29 Disposition: Home, Self-Care 01 Condition: Fair Clinical Impression: Laceration Shoulder sprain Qualifiers: Encounter type: initial encounter Shoulder sprain type: unspecified sprain Laterality: left Qualified Code(s): S43.402A - Unspecified sprain of left shoulder joint, initial encounter Head injury Qualifiers: Encounter type: initial encounter Qualified Code(s): S09.90XA - Unspecified injury of head, initial encounter Hand sprain Qualifiers: Encounter type: initial encounter Laterality: right Qualified Code(s): S63.91XA - Sprain of unspecified part of right wrist and hand, initial encounter Metacarpal bone fracture Qualifiers: Encounter type: initial encounter Metacarpal bone: fifth Fracture type: closed Metacarpal location: base Fracture alignment: nondisplaced Laterality: right Qualified Code(s): S62.346A - Nondisplaced fracture of base of fifth metacarpal bone, right hand, initial encounter for closed fracture - Discharge Information *PRESCRIPTION DRUG MONITORING PROGRAM REVIEWED*: Not Applicable *COPY OF PRESCRIPTION DRUG MONITORING REPORT IN PATIENT CHEN: Not Applicable Instructions: Head Injury, Adult, Shoulder Sprain, Laceration Care, Adult, Hand Contusion, Sutures, [place], or Adhesive Wound Closure, [id number], Metacarpal Fracture Referrals: PCP,None [Primary Care Provider] - Forms: ED Department Discharge Additional Instructions: Followup with primary care provider for recheck Followup with primary care provider if pain continues after 10-14 days Return to the ER for worsening of condition or any emergent concerns Keep wound glue on face dry for 24 hours Keep clean and dry Keep hand splint in place Rest Ice Elevate Tylenol for pain Sepsis Event Note - Evaluation Sepsis Screening Result: No Definite Risk - Focused Exam Vital Signs: Vital Signs Temp Pulse Resp BP Pulse Ox 07/21/19 11:17 96 F L 74 18 131/66 100 Date Exam was Performed: 07/21/19 Time Exam was Performed: 15:34 - My Orders Last 24 Hours: My Active Orders 07/21/19 11:12 Head wo Cont [CT] Stat Shoulder Comp Lt [CR] Stat 07/21/19 11:52 Hand Comp Min 3V Rt [CR] Stat - Assessment/Plan Last 24 Hours: My Active Orders 07/21/19 11:12 Head wo Cont [CT] Stat Shoulder Comp Lt [CR] Stat 07/21/19 11:52 Hand Comp Min 3V Rt [CR] Stat Plan: PLEASE SEE RN NOTE FOR PFSH
== END 2019-07-21 12:42 | disposition home or self-care (01) ==
LOC: CC.ED 11:02
DX: S09.90XA Unspecified injury of head, initial encounter (principal); S62.346A Nondisplaced fracture of base of fifth metacarpal bone, right hand, initial encounter for closed fracture; S01.81XA Laceration without foreign body of other part of head, initial encounter; S63.91XA Sprain of unspecified part of right wrist and hand, initial encounter; S43.402A Unspecified sprain of left shoulder joint, initial encounter; Z79.899 Other long term (current) drug therapy; W01.10XA Fall on same level from slipping, tripping and stumbling with subsequent striking against unspecified object, initial encounter
CPT/HCPCS: 12011; 29105; 70450; 73030-LT; 73130-RT; 99284-25

== ENCOUNTER 2019-12-05 10:55 | Emergency (ER) | payer BC ==
[2019-12-05 11:02] VITALS: BP 122/53; PULSE 64
--- NOTE | 2019-12-05 11:52 | EDM.PDOC ---
ED HPI GENERAL MEDICAL PROBLEM - General Chief Complaint: General Stated Complaint: Fall L Shoulder INjury Time Seen by Provider: 12/05/19 11:20 Source of Information: Reports: Patient History Limitations: Reports: No Limitations - History of Present Illness INITIAL COMMENTS - FREE TEXT/NARRATIVE: Patient presents to ER with complaints of left shoulder pain after a fall. States missed the last step while going to the basement today and fell. Unsure if she landed on her left shoulder or an outstretched hand. States has pain to the posterior shoulder now. Has pain with range of motion. Did not hit head, no loss of consciousness. No other areas of pain. Onset: Today, Sudden Duration: Minutes: Location: Reports: Upper Extremity, Left Quality: Reports: Ache Severity: Moderate Improves with: Reports: Rest Worsens with: Reports: Movement Associated Symptoms: Reports: No Other Symptoms l shoulder Pain Score (Numeric/FACES): 7 - Related Data Allergies Allergy/AdvReac Type Severity Reaction Status Date / Time bee venom protein (honey bee) Allergy Other Verified 10/05/19 13:08 Home Meds: Home Meds Cholecalciferol (Vitamin D3) [Vitamin D3] 2,000 units PO DAILY 03/13/14 [History] Cimetidine [Tagamet] 200 mg PO BID PRN 03/13/14 [History] Fish Oil/[place]-3 Fatty Acids [Fish Oil 1,000 MG] 1 each PO DAILY 03/13/14 [History] Ibuprofen [Advil] 200 mg PO ASDIRECTED PRN 03/13/14 [History] Red Yeast Rice 600 mg PO BID 03/13/14 [History] Ubidecarenone [Co Q-10] 100 mg PO DAILY 03/13/14 [History] Calcium Carbonate [Calcium] 600 mg PO DAILY 09/09/16 [History] EPINEPHrine [Epipen 2-[place]] 0.3 mg IM DAILY PRN 09/09/16 [History] Vitamin B Complex 1 each PO DAILY 09/09/16 [History] Denosumab [Prolia] 60 mg PO Q6M 07/14/18 [History] Loratadine [Claritin] 10 mg PO DAILY 07/14/18 [History] Lifitegrast [Xiidra] 1 drop EYEBOTH BID 03/05/19 [History] Past Medical History Gastrointestinal History: Reports: Diverticulosis - Past Surgical History GI Surgical History: Reports: Appendectomy Social & Family History - Family History Family Medical History: Noncontributory - Tobacco Use Tobacco Use Status *Q: Never Tobacco User Second Hand Smoke Exposure: No - Caffeine Use Caffeine Use: Reports: None - Recreational Drug Use Recreational Drug Use: No ED ROS GENERAL - Review of Systems Review Of Systems: See Below Constitutional: Reports: No Symptoms HEENT: Reports: No Symptoms Respiratory: Reports: No Symptoms Cardiovascular: Reports: No Symptoms Endocrine: Reports: No Symptoms : Reports: No Symptoms Musculoskeletal: Reports: Shoulder Pain, Arm Pain Skin: Reports: No Symptoms Neurological: Reports: No Symptoms ED EXAM, GENERAL - Physical Exam Exam: See Below Exam Limited By: No Limitations General Appearance: Alert, WD/WN, No Apparent Distress Head: Normocephalic Neck: Normal Inspection, Supple, Non-Tender Respiratory/Chest: No Respiratory Distress, Lungs Clear, Normal Breath Sounds Cardiovascular: Regular Rate, Rhythm Extremities: Other (tender to the posterior shoulder. Pain with abduction/adduction and external rotation. No obvious bruising or redness. ) Neurological: Alert, Oriented Skin Exam: Warm, Dry Course - Vital Signs Last Recorded V/S: Last Vital Signs Temp 97.9 F 12/05/19 10:56 Pulse 64 12/05/19 10:56 Resp 14 12/05/19 10:56 BP 122/53 L 12/05/19 10:56 Pulse Ox 100 12/05/19 10:56 - Orders/Labs/Meds Orders: Active Orders 24 hr Category Date Time Status Shoulder Comp Lt [CR] Stat Exams 12/05/19 11:20 Taken - Re-Assessments/Exams Free Text/Narrative Re-Assessment/Exam: 12/05/19 Xrays show no obvious deformity, fracture or dislocation. Departure - Departure Time of Disposition: 11:51 Disposition: Home, Self-Care 01 Condition: Good Clinical Impression: Shoulder sprain Qualifiers: Encounter type: initial encounter Shoulder sprain type: unspecified sprain Laterality: left Qualified Code(s): S43.402A - Unspecified sprain of left shoulder joint, initial encounter - Discharge Information *PRESCRIPTION DRUG MONITORING PROGRAM REVIEWED*: No *COPY OF PRESCRIPTION DRUG MONITORING REPORT IN PATIENT CHEN: No Instructions: Shoulder Sprain Referrals: Zeinab Flores PA [Primary Care Provider] - Forms: ED Department Discharge Additional Instructions: 1. Rest 2. Ibuprofen or tylenol for discomfort 3. Ice today, heat or ice tomorrow 4. Continue PT 5. Notify us if persisting pain, may need further imaging. Sepsis Event Note (ED) - Evaluation Sepsis Screening Result: No Definite Risk - Focused Exam Vital Signs: Vital Signs Temp Pulse Resp BP Pulse Ox 12/05/19 10:56 97.9 F 64 14 122/53 L 100 - My Orders Last 24 Hours: My Active Orders 12/05/19 11:20 Shoulder Comp Lt [CR] Stat - Assessment/Plan Last 24 Hours: My Active Orders 12/05/19 11:20 Shoulder Comp Lt [CR] Stat
== END 2019-12-05 12:20 | disposition home or self-care (01) ==
LOC: CC.ED 10:55
DX: S43.402A Unspecified sprain of left shoulder joint, initial encounter (principal); Z91.030 Bee allergy status; Z79.899 Other long term (current) drug therapy; W19.XXXA Unspecified fall, initial encounter
CPT/HCPCS: 73030-LT; 99283